=== PATIENT | female | born 1985 | race Caucasian/White ===

== ENCOUNTER → 2020-06-27 14:51 | Outpatient (CLI) | payer OTHER, MEDICAID, SELFPAY ==
--- NOTE | 2020-06-27 | DI.CT.S_ITS ---
PROCEDURE: CT SINUS SCREEN WO CON INDICATIONS: deviated septum TECHNIQUE: Noncontrast 3.0 mm axial images acquired from the frontal sinuses to the mid-sella, with coronal and sagittal reformats. For radiation dose reduction, the following was used: automated exposure control, adjustment of mA and/or kV according to patient size. COMPARISON: None. FINDINGS: Image quality: Excellent. Maxillary Sinuses: Moderate mucosal thickening is seen within the maxillary sinuses, left worse than right. There is demineralization seen of the medial barnes of the maxillary sinuses. Ethmoid Air Cells: Moderate mucosal thickening is seen within the ethmoid air cells. Bony demineralization can be seen. Sphenoid Sinuses: No bony remodeling or destruction. Mild mucosal thickening is seen. Frontal Sinuses: No bony remodeling or destruction. There is subtotal opacification seen on the left side and mild opacification seen on right. No significant bony abnormality is seen. Ostiomeatal Complexes: Ostiomeatal complexes are patent are opacified. The ostiomeatal complexes are demineralized. Miscellaneous: Visualized intra-orbital contents are normal. There is a right-sided yenifer bullosa, with mucosal thickening seen within it. There is moderate leftward nasal septal deviation. Soft tissue can be seen within the nasal cavity, which is attributed to polyps. IMPRESSION: Paranasal sinus disease is seen, which is worst within the maxillary sinuses and the ethmoid air cells. Areas of bony demineralization are seen, which are consistent with chronic sinusitis. Completely opacified and demineralized ostiomeatal complexes. Presumed nasal polyps. Dictated by: Timur Wright M.D. on 06/27/2020 at 15:18 Approved by: Timur Wright M.D. on 06/27/2020 at 15:21
== END ==
PROVIDERS: PCP Physician Assistant; Referring Provider Otolaryngology; Visit Provider Otolaryngology
DX: J34.2 Deviated nasal septum (principal); J32.4 Chronic pansinusitis
CPT/HCPCS: 70486

== ENCOUNTER → 2020-08-07 11:15 | Outpatient (CLI) | payer OTHER, MEDICAID, SELFPAY ==
--- NOTE | 2020-08-07 11:25 | DI.CT.S_ITS ---
PROCEDURE: CT SINUS SCREEN WO CON INDICATIONS: CHRONIC PANSINUSITIS TECHNIQUE: Noncontrast 3.0 mm axial images acquired from the frontal sinuses to the mid-sella, with coronal and sagittal reformats. For radiation dose reduction, the following was used: automated exposure control, adjustment of mA and/or kV according to patient size. COMPARISON: [facility], CT, CT SINUS SCREEN WO CON, 06/27/2020, 15:02. FINDINGS: Image quality: Excellent. Maxillary Sinuses: Moderate partial opacification of both maxillary sinuses, with bubbly/frothy appearance raising possibility of acute on chronic disease. This appears progressed since the prior study. Ethmoid Air Cells: Partial opacification of bilateral ethmoid air cells. Sphenoid Sinuses: There is mild mucosal thickening, which is slightly progressed since the prior study. Frontal Sinuses: Mild opacification of the inferior left frontal sinus. Overall however the frontal sinuses appear improved since 06/27/20. Ostiomeatal Complexes: Ostiomeatal complexes are opacified bilaterally. No Shun cells. Miscellaneous: Visualized intra-orbital contents are normal. No yenifer bullosa or paradoxical turbinate curvature. Leftward nasal septal deviation. IMPRESSION: Slight interval progression in sphenoid and maxillary sinus disease since the prior study dated 06/27/20. Interval development of frothy appearance in both maxillary sinuses suggests acute on chronic sinusitis. Improvement in bilateral frontal sinus disease. Dictated by: Kristopher Durán M.D. on 08/07/2020 at 12:43 Approved by: Kristopher Durná M.D. on 08/07/2020 at 12:48
== END ==
PROVIDERS: PCP Physician Assistant; Referring Provider Otolaryngology; Visit Provider Otolaryngology
DX: J32.4 Chronic pansinusitis (principal); R51.9 Headache, unspecified; J34.89 Other specified disorders of nose and nasal sinuses
CPT/HCPCS: 70486

== ENCOUNTER → 2020-11-08 11:21 | Outpatient (CLI) | payer OTHER, MEDICAID, SELFPAY ==
[2020-11-08 13:28] LABS: COVID19 -Nasal RAPID Negative (Negative)
== END ==
PROVIDERS: PCP Physician Assistant; Visit Provider Physician Assistant
DX: Z20.822 Contact with and (suspected) exposure to COVID-19 (principal)
CPT/HCPCS: 87635; C9803

== ENCOUNTER 2020-11-09 11:04 | Day surgery (SDC) | payer OTHER, MEDICAID, SELFPAY ==
[2020-11-06 14:41] VITALS: BMI 30.5
[2020-11-09] VITALS (12 sets, daily range): BP systolic 119–146; BP diastolic 55–83; PULSE 58–95; RESP 12–18; TEMP 36.2–37.1; O2SAT 94–100; BMI 30.5
--- NOTE | 2020-11-09 | PATH_ITS ---
[facility] Accession Number: [id number] . 01 Material submitted: . PART A: nose - LEFT SEPTUM PART B: nose - RIGHT SEPTUM . 01 Diagnosis: A. Left Septum, Excision: Inflamed sinonasal mucosa with scattered eosinophils. Negative for malignancy. . B. Right Septum, Excision: Inflamed sinonasal mucosa with increased eosinophils. Negative for malignancy. [facility] 11/14/2020 1017 Local . 01 Electronically signed: . Angel Luis Garvey MD, Dermatopathologist NPI- [id number] . 01 Gross description: . A. Specimen A is received in formalin labeled left septum and consists of multiple agarwal-pink fragments of soft tissue, measuring 1.0 x 0.8 x 0.2 cm in aggregate. The specimen is entirely submitted in cassette A1. B. Specimen B is received in formalin labeled right septum and consists of multiple agarwal-pink fragments of soft tissue, measuring 1.0 x 0.7 x 0.2 cm in aggregate. The specimen is entirely submitted in cassette B1. ([id number]) . /[facility] 11/10/2020 1817 Local . 01 Pathologist provided ICD-10: J33.9 . 01 CPT . 801994, [id number] Performed at: 01 [facility] [address], [place], [place] [id number] MD Paul Perez MD Phone: [phone]
[2020-11-09] MEDS: LACTATED RINGERS 1,000 ML 100 ML IV ×3 (11:37→12:59)
--- NOTE | 2020-11-09 11:41 | PM.PREOP ---
Pre-operative Note Interval Note History & Physical reviewed/Exam performed by Physician: Yes Changes to H&P: No
--- NOTE | 2020-11-09 11:42 | PM.OP.1 ---
Operative Date/Time/Diagnoses Date of procedure: 11/09/20 Time of procedure: 15:44 Pre-op diagnosis: Chronic rhinosinusitis with nasal polyposis, septal deviation, nasal airway obstruction, right yenifer bullosa, allergic rhinitis, nasal valve restriction, inferior turbinate hypertrophy Post-op diagnosis: same (Septal masses) Procedure & Clinicians Procedure: 1. Septoplasty 2. Bilateral endoscopic maxillary antrostomy 3. Bilateral endoscopic total ethmoidectomy 4. LEFT endoscopic sphenoidotomy 5:Right yenifer bullosa resection 6. Bilateral inferior turbinate reduction via intramural cautery Same procedure as scheduled: Yes Indications: 35-year-old female with the above diagnoses incompletely managed with medical therapy presents for the above procedures. Following discussion of the material risks benefits complications and alternatives, she elected to proceed. Surgeon: Ollie Zurita Click Yes if Unassisted: Yes Anesthesia Type: General and Local Operative Notes Findings: 2+ right caudal septal deviation, 2 to 3+ left septal deviation most severe superiorly. Left mid low septal flap perforation. Polypoid possible papillomatous tissue bilateral superior septum medial to the middle turbinates, biopsies taken. Polypoid mucosa left greater than right maxillary sinus, small polyps in each middle meatus and throughout the ethmoids. Left sphenoid clear, right sphenoidotomy not performed. Right yenifer bullosa included the majority of the middle turbinate and was resected, left diminutive middle turbinate was resected for access. Closure Type: primary Estimated Blood Loss (mL): 570 Procedure in detail: Following identification and confirmation of consent the patient was brought to the operating room suite and placed in the supine position. General endotracheal anesthesia was administered. I infiltrated the septum widely bilaterally with 1% lidocaine 1 100,000 epinephrine followed by temporary packing with cotton with Afrin and 4% lidocaine only anteriorly. Following sterile prep and drape, the packing was removed and I performed a right margarito-transfixion incision, elevated the right mucoperichondrial and mucoperiosteal flap. I disarticulated near the bony/cartilaginous junction and elevated the left mucoperiosteal flap. Deviated portions of the perpendicular plate of the ethmoid and vomer were resected. The residual quadrilateral cartilage was further straightened by trimming it inferiorly as well as reducing the maxillary crest. A 2 mm strip of cartilage paralleling the residual 1 cm dorsal and caudal strut was resected to further straighten the quadrilateral cartilage. The hemitransfixion incision was closed with interrupted 5 0 chromic followed by a running 4 0 plain gut mattress suture to reapproximate the septal flaps. At case completion, 20/1000th of an inch silastic splints were placed bilaterally, sutured anteriorly with a single 4 0 nylon. Each inferior turbinate had been previously infiltrated with additional local anesthetic, and a 25 gauge spinal needle was used to impale the length of the turbinate and cautery on a setting of 10 was applied on slow withdrawal to perform intramural cautery. This was performed over 2 passes for each inferior turbinate before each was outfractured. Under endoscopic guidance I infiltrated the posterior and anterior superior insertion of the left middle turbinate. 1:1000 topical epinephrine on small pledgets were placed within the middle meatus for 10 minutes. The middle turbinate was diminutive and was resected with through cutting forceps, with electrocautery of the residual posterior stump. backbiting forceps performed uncinectomy along with the microdebrider. Multiple bites with the through cutting forceps biopsied the septal papillomatous tissue medial to the middle turbinates and were sent as a specimen. Large Maxillary antrostomy was created by extending the natural os posteriorly and inferiorly. The ethmoid bulla was resected with the microdebrider. I penetrated the basal lamella inferiorly and medially to enter the posterior ethmoids and trimmed a portion of the superior turbinate. Sphenoidotomy was performed and enlarged with the J curette and the microdebrider inferiorly and medially. Posterior to anterior ethmoid dissection was performed with the J curette and forceps although the frontal recess was not approached. The ethmoid cavity was narrow on this side due to the high septal deviation and intermittent hemostasis was required with epinephrine-soaked pledgets. On the right side I performed similar injections as well as topical treatment with epinephrine. The yenifer bullosa of the middle turbinate was large and resection essentially led to complete resection of the turbinate, with cautery of the residual stump posteriorly. The uncinate process was lateralized and uncinectomy was performed with backbiting forceps. The maxillary antrostomy was performed and care was taken to ensure the natural os of the maxillary sinus was in continuity. Ethmoid bulla was resected and I penetrated the basal lamella to enter the posterior ethmoids and the natural os of the sphenoid was not readily apparent and sphenoidotomy was not performed. Posterior to anterior dissection was performed bluntly To approach but not into the frontal recess, overall with inflamed polypoid tissue and somewhat difficult visualization due to oozing, requiring frequent application of epinephrine-soaked pledgets. Hemostasis was adequate at completion and all sponge and needle counts were correct. She was extubated in the operating room and taken to recovery room in stable condition without known complication. Post-operative Condition: stable Disposition: same day surgery Plan for aftercare: Nasal saline every hour while awake, begin irrigations t.i.d. tomorrow, 2 of the 3 with budesonide. Polysporin to the nostrils at all times, Tylenol alternating with Advil for pain control, oxycodone for breakthrough pain. Elevate head of bed, no nose blowing, no straining for 2 weeks. Follow-up in 1 week for nasal splint removal. Ice to the upper lip tucked under the nose can be very helpful, possibly on the nasal dorsum as well.
--- NOTE | 2020-11-09 12:33 | SUR.OPER ---
Supine on padded OR bed, head on pillow, arms padded and tucked at sides, legs uncrossed, safety belt at thigh, tape over blanket over lower legs .
[2020-11-09] MEDS: OXYMETAZOLINE NASAL SPRAY 15 ML 2 SPRAYS NASAL (12:45)
[2020-11-09] MEDS: LIDOCAINE 1% W/EPI 20 ML INJ (12:46)
[2020-11-09] MEDS: EPINEPHrine 1 MG/ML 6 MG TOP (12:48)
[2020-11-09] MEDS: BACITRACIN OINT 0.9 GM PCKT 1 APPLIC TOP (12:49)
--- NOTE | 2020-11-09 16:04 | SUR.PHASEI ---
1551- received from or via [employer]. report from flatlock sewing machine operator and MDA. mustache dressing in place. c/d/i
[2020-11-09] MEDS: fentaNYL 100 MCG/2 ML INJ IV ×2 (16:21→16:30)
== END 2020-11-09 17:25 | disposition home or self-care (01) ==
PROVIDERS: PCP Physician Assistant; Referring Provider Otolaryngology; Visit Provider Otolaryngology
PROC: (CPT 30520; principal; 2020-11-09 12:15)
PROC: (CPT 31231; 2020-11-09 12:15)
DX: J34.2 Deviated nasal septum (principal); J33.9 Nasal polyp, unspecified; J34.89 Other specified disorders of nose and nasal sinuses; J45.909 Unspecified asthma, uncomplicated; F12.90 Cannabis use, unspecified, uncomplicated; Z87.891 Personal history of nicotine dependence; J34.3 Hypertrophy of nasal turbinates
CPT/HCPCS: 31256; 30520; 31257; 31240; 30802; 81025; J0171; J1100; J1170; J2250; J2405; J2704; J3010

== ENCOUNTER 2020-11-10 20:51 | Emergency (ER) | payer OTHER, MEDICAID, SELFPAY ==
[2020-11-10 21:08] VITALS: BP 146/78; PULSE 60; RESP 18; TEMP 36.6; O2SAT 99
[2020-11-10 23:02] VITALS: BP 135/74; PULSE 59; TEMP 37; O2SAT 100
--- NOTE | 2020-11-10 23:25 | ED.GENADULT ---
HPI - General Adult General Chief complaint: Nasal Problem Stated complaint: nose surgery splint/surgery problem Time Seen by Provider: 11/10/20 23:24 Source: patient Mode of arrival: Ambulatory History of Present Illness HPI narrative: 35-year-old woman with a history of chronic sinus problems and asthma presents 48 hours after septoplasty and sinus surgery concerned that the splint in place in the septum has been dislodged. She sneezed and had worsening pain on the left side with recurrent swelling on the left side. And the 24 hours postop she had notice that the pain and swelling were improving. She is concerned that she has done significant damage and is looking for reassurance. She describes sinus fullness and discomfort but no bleeding, cough, fevers. Related Data Home Medications Medication Instructions Recorded Confirmed acyclovir 400 mg tablet 400 mg PO BID 11/06/20 11/09/20 albuterol sulfate 90 mcg/actuation 2 puff INHALATION Q4H PRN 11/06/20 11/09/20 aerosol inhaler (ProAir HFA) budesonide-formoterol HFA 80 2 puff INHALATION BID 11/06/20 11/09/20 mcg-4.5 mcg/actuation aerosol inhaler (Symbicort) montelukast 10 mg tablet 10 mg PO DAILY 11/06/20 11/09/20 (Singulair) Previous Rx's Medication Instructions Recorded oxycodone-acetaminophen 5 mg-325 1 tab PO Q6H PRN #10 tab 11/11/20 mg tablet Allergies Allergy/AdvReac Type Severity Reaction Status Date / Time No Known Drug Allergies Allergy Verified 11/09/20 11:34 Review of Systems Review of Systems Narrative: Remainder of complete review of systems is otherwise unremarkable except for that included in the HPI. Patient History Medical History (Updated 11/11/20 @ 01:04 by Samaria Suggs MD) Allergic rhinitis Asthma Nasal fracture Nasal septal deviation Pansinusitis Surgical History (Updated 11/11/20 @ 01:04 by Samaria Suggs MD) History of sinus surgery Social History household members: significant other and children Smoking Status: Former smoker alcohol intake: current Smoking Status: Former smoker alcohol intake frequency: a few times a month Substance Use Type: marijuana Exam Narrative Exam Narrative: General: Alert appropriate in no acute distress HEENT: Swollen fullness over the bridge of her nose without significant bruising. Splints bilaterally along the septum with suture holding both in place visible. She has a bit more swelling lateral aspect of the turbinates on the left side but no active bleeding. Postsurgical splint appears to be appropriately placed. Respiratory: Able to speak in full sentences, no obvious respiratory distress Skin: No obvious rashes, warm and dry Neurologic: Grossly intact no obvious asymmetries or abnormalities Psych: appropriate insight and affect, cooperative Initial Vital Signs Initial Vital Signs: Vital Signs Temperature 98 F 11/10/20 21:08 Pulse Rate 60 11/10/20 21:08 Respiratory Rate 18 11/10/20 21:08 Blood Pressure 146/78 H 11/10/20 21:08 Pulse Oximetry 99 11/10/20 21:08 Course Orders Ordered: Discontinued Medications Ibuprofen (Ibuprofen 400 Mg Tablet) 400 mg PO NOW ONE Stop: 11/11/20 00:35 Last Admin: 11/11/20 00:48 Dose: 400 mg Documented by: RHODA Oxycodone/Acetaminophen (Oxycodone/Acetaminophen 5/325 Tablet) 1 tab PO NOW ONE Stop: 11/11/20 00:35 Last Admin: 11/11/20 00:48 Dose: 1 tab Documented by: RHODA Oxycodone/Acetaminophen (Oxycodone/Apap 5/325 Prepack) 1 bottle MISC SEEINSTR ONE Stop: 11/11/20 00:58 Last Admin: 11/11/20 01:01 Dose: 1 bottle Documented by: RHODA Vital Signs Vital signs: Vital Signs - 8 hr 11/10/20 21:08 11/10/20 23:02 Temperature 98 F 98.6 F Pulse Rate 60 59 L Respiratory Rate 18 Blood Pressure 146/78 H 135/74 Pulse Oximetry 99 100 Medical Decision Making [facility] Narrative Medical decision making narrative: 35-year-old woman who is 48 hours post septoplasty and sinus surgery presents after sneezing and concerned that she has dislodged the postsurgical packing. Physical exam suggests that it is appropriately placed. Care is briefly reviewed with Dr. Cardozo, on-call for Dr. Zurita this evening. With reassurance, ibuprofen and Percocet her pain was much better controlled and she is safe for home discharge she will follow-up with Dr. Zurita as previously scheduled. Discharge Plan Departure Patient Disposition: Home Clinical Impression: Post-operative pain Instructions: Rhinoplasty Activity Restrictions/Additional Instructions: Thank you for coming in today The septal splint is still in place on both sides. It may have shifted a little bit on the left side which is why it is hurting more but it is still doing what it needs to do. Please try sleeping as upright as you are able to tolerate to try to reduce some of the swelling. I have given you a small prescription of Percocet to help with the continued pain. The prescription was electronically transmitted to [facility] in [place] If you have worsening symptoms please feel free to return to the ER. Prescriptions: New oxycodone-acetaminophen 5-325 mg tablet 1 tab PO Q6H PRN (Reason: pain) Qty: 10 RF: 0 No Action acyclovir 400 mg Tablet 400 mg PO BID RF: 0 montelukast [Singulair] 10 mg Tablet 10 mg PO DAILY RF: 0 albuterol sulfate [ProAir HFA] 90 mcg/actuation Hfa Aerosol Inhaler 2 puff INHALATION Q4H PRN (Reason: Wheezing) RF: 0 budesonide-formoterol [Symbicort] 80-4.5 mcg/actuation Hfa Aerosol Inhaler 2 puff INHALATION BID RF: 0 Referrals: Bre Valdez [Primary Care Provider] -
[2020-11-11] MEDS: IBUPROFEN 400 MG TABLET PO (00:48)
[2020-11-11] MEDS: OXYCODONE/ACETAMINOPHEN 5/325 TABLET 1 TAB PO (00:48)
[2020-11-11] MEDS: OXYCODONE/APAP 5/325 PREPACK 1 BOTTLE MISC (01:01)
[2020-11-11 01:06] VITALS: BP 140/60; PULSE 64; RESP 18; O2SAT 99
== END 2020-11-11 01:06 | disposition home or self-care (01) ==
PROVIDERS: Emergency Provider Emergency Medicine; PCP Physician Assistant
DX: G89.18 Other acute postprocedural pain (principal)
CPT/HCPCS: 99283

== ENCOUNTER 2020-11-18 18:23 | Emergency (ER) | payer OTHER, MEDICAID, SELFPAY ==
[2020-11-18 18:28] VITALS: BP 148/97; PULSE 107; RESP 20; TEMP 36.9; O2SAT 100
--- NOTE | 2020-11-18 19:32 | ED_ITS ---
HPI - Headache General Chief Complaint: Headache Stated Complaint: head pain x9 days/post surgery Time Seen by Provider: 11/18/20 19:01 Source: patient Mode of arrival: Ambulatory Limitations: no limitations History of Present Illness HPI Narrative: Patient is a 35-year-old female. Approximately 9 days ago underwent a scheduled outpatient rhinoplasty and sinus surgery. Since that time she has followed up with the operative provider. Has had the stents removed. Since the surgery she has had a headache. She does have a history of migraines. States this feels somewhat like her prior migraines but also somewhat different. No fevers. A couple days ago she was started on antibiotics and also a steroid by the operative provider. She has been taking these as directed. She states she was told by the operative provider that if her symptoms worsen or do not improve that she should come to the emergency department for evaluation. Related Data Home Medications Medication Instructions Recorded Confirmed acyclovir 400 mg tablet 400 mg PO BID 11/06/20 11/09/20 albuterol sulfate 90 mcg/actuation 2 puff INHALATION Q4H PRN 11/06/20 11/09/20 aerosol inhaler (ProAir HFA) budesonide-formoterol HFA 80 2 puff INHALATION BID 11/06/20 11/09/20 mcg-4.5 mcg/actuation aerosol inhaler (Symbicort) montelukast 10 mg tablet 10 mg PO DAILY 11/06/20 11/09/20 (Singulair) Previous Rx's Medication Instructions Recorded oxycodone-acetaminophen 5 mg-325 1 tab PO Q6H PRN #10 tab 11/11/20 mg tablet sumatriptan succinate 3 mg/0.5 mL 3 mg SUBCUT Q1H PRN #2 ml 11/18/20 subcutaneous pen injector Allergies Allergy/AdvReac Type Severity Reaction Status Date / Time No Known Drug Allergies Allergy Verified 11/18/20 18:33 Review of Systems Constitutional Constitutional: Reports system reviewed and no additional complaints, except as documented and Denies fever(s) Eyes Eyes: Reports as per HPI and Reports system reviewed and no additional complaints, except as documented ENT Ears, Nose, Mouth, and Throat: Reports system reviewed and no additional complaints, except as documented Respiratory Respiratory: Reports as per HPI and Reports system reviewed and no additional complaints, except as documented Integumentary/Breasts Skin/Breast: Reports system reviewed and no additional complaints, except as documented Neurologic Neurologic: Reports system reviewed and no additional complaints, except as documented Hematologic/Lymphatic On Anticoagulants: No Patient History Medical History Allergic rhinitis Asthma Nasal fracture Nasal septal deviation Pansinusitis Surgical History (Updated 11/11/20 @ 01:04 by Samaria Suggs MD) History of sinus surgery Social History household members: significant other and children Smoking Status: Former smoker alcohol intake: current Smoking Status: Former smoker alcohol intake frequency: a few times a month Substance Use Type: marijuana Exam Initial Vital Signs Initial Vital Signs: Vital Signs Temperature 98.4 F 11/18/20 18:28 Pulse Rate 107 H 11/18/20 18:28 Respiratory Rate 20 11/18/20 18:28 Blood Pressure 148/97 H 11/18/20 18:28 Pulse Oximetry 100 11/18/20 18:28 Const General: cooperative, healthy appearing and comfortable [facility] Head: normal to inspection and normocephalic Eyes Other: Patient has minimal if any bruising around her eyes. Nose is straight. Resp Effort & Inspection: normal respiratory effort Cardio Rate: regular rate Skin General: no rashes or lesions noted Neuro General: patient alert, patient awake, patient oriented x3 and moves all extremities Cognition: normal cognition Speech: speech normal Extrem General: normal to inspection Psych Appearance: grossly normal and well kempt Course Orders Ordered: Discontinued Medications Diphenhydramine HCl (Diphenhydramine 50 Mg/Ml Vial) 25 mg IV NOW ONE Stop: 11/18/20 19:33 Last Admin: 11/18/20 19:38 Dose: 25 mg Documented by: KGALLAG Sodium Chloride (Normal Saline 0.9%) 1,000 mls @ 1,000 mls/hr IV BOLUS ONE Stop: 11/18/20 20:31 Last Infusion: 11/18/20 20:50 Dose: 0 mls/hr Documented by: Admin: 11/18/20 19:38 Dose: 1,000 mls/hr Documented by: [email or web address] Metoclopramide HCl (Metoclopramide 10 Mg/2 Ml Inj) 10 mg IV NOW ONE Stop: 11/18/20 19:33 Last Admin: 11/18/20 19:38 Dose: 10 mg Documented by: KATHERIN Sumatriptan Succinate (Sumatriptan 6 Mg/0.5 Ml Vial) 6 mg SUBCUT NOW ONE Stop: 11/18/20 20:42 Last Admin: 11/18/20 20:53 Dose: 6 mg Documented by: KATHERIN Vital Signs Vital signs: Vital Signs - 8 hr 11/18/20 18:28 11/18/20 20:57 Temperature 98.4 F Pulse Rate 107 H 61 Respiratory Rate 20 16 Blood Pressure 148/97 H 127/64 Pulse Oximetry 100 98 MDM - Headache Lab Data Labs: Urine Dip Bedside Urine Glucose Negative Bedside Urine Bilirubin - Negative Bedside Urine Ketone - Negative Urine Specific [place] 1.015 Bedside Urine Occult Blood - Negative Bedside Urine pH 6.0 Bedside Urine Urobilinogen - Negative Bedside Urine Nitrite - Negative Bedside Urine Leukocytes - Negative Esterase MDM Narrative Medical decision making narrative: Patient does have a history of migraines and she reported some improvement of her headache after treatment here in the ER. She states it was not completely gone. She is already on steroids. Already on antibiotics. No fevers. Low suspicion for meningitis. I did discuss the case with Dr. heart who was on-call for ENT. He recommended the course of treatment as described above. Patient was given return precautions and follow-up instructions. She expressed understanding and agreement. Discharge Plan Departure Patient Disposition: Home Clinical Impression: Headache, Post-operative pain Instructions: DI for Headache Activity Restrictions/Additional Instructions: I do recommend that you continue with the antibiotics and the steroids that was provided to you by the ear nose and throat provider. Also keep your appointment that is already scheduled next week with the neurologist. Use the sumatriptan/Imitrex as directed. Return to the emergency department for any new or worsening symptoms. Prescriptions: New sumatriptan succinate 3 mg/0.5 mL pen injector 3 mg SUBCUT Q1H PRN (Reason: migraine headache) Qty: 2 RF: 0 No Action acyclovir 400 mg Tablet 400 mg PO BID RF: 0 montelukast [Singulair] 10 mg Tablet 10 mg PO DAILY RF: 0 albuterol sulfate [ProAir HFA] 90 mcg/actuation Hfa Aerosol Inhaler 2 puff INHALATION Q4H PRN (Reason: Wheezing) RF: 0 budesonide-formoterol [Symbicort] 80-4.5 mcg/actuation Hfa Aerosol Inhaler 2 puff INHALATION BID RF: 0 oxycodone-acetaminophen 5-325 mg tablet 1 tab PO Q6H PRN (Reason: pain) Qty: 10 RF: 0 Referrals: Bre Valdez [Primary Care Provider] -
[2020-11-18] MEDS: diphenhydrAMINE 50 MG/ML VIAL 25 MG IV (19:38)
[2020-11-18] MEDS: METOCLOPRAMIDE 10 MG/2 ML INJ IV (19:38)
[2020-11-18] MEDS: SODIUM CHLORIDE 0.9% 1,000 ML 1000 ML IV (19:38)
[2020-11-18] MEDS: SUMAtriptan 6 MG/0.5 ML VIAL SUBCUT (20:53)
[2020-11-18 20:57] VITALS: BP 127/64; PULSE 61; RESP 16; O2SAT 98
== END 2020-11-18 20:58 | disposition home or self-care (01) ==
PROVIDERS: Emergency Provider Emergency Medicine; PCP Physician Assistant
DX: R51.9 Headache, unspecified (principal); G89.18 Other acute postprocedural pain; Z98.890 Other specified postprocedural states
CPT/HCPCS: 36415; 81003; 96361; 96372; 96374; 96375; 99284; J1200; J2765; J3030

== ENCOUNTER 2021-10-26 10:45 | Emergency (ER) | payer OTHER, MEDICAID, SELFPAY ==
[2021-10-26 10:51] VITALS: BP 151/80; PULSE 94; RESP 18; TEMP 36.7; O2SAT 98; BMI 28.1
[2021-10-26 11:15] LABS: Add Manual Diff / Slide Review NO; Basophils Absolute Auto 100 /uL (0-100); Basophils Percent Auto 1.4 % (0-2); Eosinophils Absolute Auto 200 /uL (0-450); Eosinophils Percent Auto 3.8 % (2-4); Hematocrit 39.4 % (36-46); Hemoglobin 13.4 g/dL (12.0-16.0); Lymphocytes Absolute Auto 1500 /uL (1100-4500); Lymphocytes Percent Auto 29.9 % (25-40); Mean Corpuscular HGB Conc 33.9 % (30-36); Mean Corpuscular Hemoglobin 29.1 PG (26-34); Mean Corpuscular Volume 85.9 fL (80-100); Monocytes Absolute Auto 300 /uL (0-900); Monocytes Percent Auto 7.1 % (3-14); Neutrophils Absolute Auto 2800 /uL (1500-7000); Neutrophils Percent Auto 57.8 % (50-75); Platelet Count 198 X10^3/uL (150-400); Red Blood Cell Count 4.59 X10^6/uL (4.0-5.2); Red Cell Distribution Width 12.6 % (11.6-14.8); White Blood Cell Count 4.9 X10^3/uL (4.5-11.0)
[2021-10-26 11:23] LABS: Alanine Aminotransferase 21 IU/L (<35); Albumin Globulin Ratio 1.4 (1.0-2.8); Alkaline Phosphatase 42 U/L (38-126); Aspartate Aminotransferase 26 IU/L (14-36); Bilirubin Total 0.7 mg/dL (0.2-1.3); Blood Urea Nitrogen 13 mg/dL (7-17); Calcium 8.9 mg/dL (8.4-10.2); Carbon Dioxide 24 mmol/L (22-32); Chloride 106 mmol/L (98-107); Estimated Glomerular Filt Rate > 60 mL/min (>60); Globulin 2.8 g/dL (1.7-4.1); Glucose 90 mg/dL (70-100); HEMOLYSIS < 15 (0-50); Lipase 83 U/L (23-300); Potassium 3.8 mmol/L (3.4-5.1); Sodium 138 mmol/L (137-145); Total Protein 6.8 g/dL (6.3-8.2)
--- NOTE | 2021-10-26 13:32 | DI.CT.S_ITS ---
PROCEDURE: CT KIDNEY URETER BLADDER (KUB) INDICATIONS: Left-sided pain TECHNIQUE: Axial sections were acquired from the lung bases to the pubic symphysis. Coronal and sagittal reformats were performed. For radiation dose reduction, the following was used: automated exposure control, adjustment of mA and/or kV according to patient size. COMPARISON: None. FINDINGS: Image quality: Excellent. Lung bases: Lung bases are clear. Heart: No significant findings. URINARY: Right Kidney: No stones or hydronephrosis. No perinephric stranding. Right Ureter: No hydroureter. No ureteral stones or periureteral stranding. Left Kidney: No stones or hydronephrosis. No perinephric stranding. Left Ureter: No hydroureter. No ureteral stones or periureteral stranding. Bladder: There is minimal circumferential urinary bladder wall thickening which may be related to incomplete distention; however, cystitis may have a similiar appearance. No stones. ABDOMEN: Liver: Unremarkable. Gallbladder: Unremarkable. Biliary ducts: Unremarkable. Pancreas: Unremarkable. Spleen: Unremarkable. Adrenal Glands: Unremarkable. Stomach and Bowel: Stomach, small bowel loops, and colon are unremarkable. Peritoneum: No abnormal intraperitoneal fluid. No free air. Ventral Wall: No hernia. Abdominal Nodes: No enlarged retroperitoneal or mesenteric lymph nodes. Vessels: Aorta and inferior vena cava are normal in size. PELVIS: Pelvic Organs: Unremarkable. Pelvic Nodes: Unremarkable. Miscellaneous: No inguinal hernias are seen. Bones: Unremarkable. IMPRESSION: Minimal circumferential urinary bladder wall thickening which may be related to incomplete distension. However, cystitis may have a similar appearance. Recommend clinical and laboratory correlation. Otherwise, CT abdomen and pelvis without acute abnormalities to explain patient's left lower quadrant abdominal pain. Dictated by: Sergei Frances M.D. on 10/26/2021 at 13:53 Approved by: Sergei Frances M.D. on 10/26/2021 at 13:57
--- NOTE | 2021-10-26 13:33 | ED_ITS ---
HPI - Abdominal Pain General Chief Complaint: Abdominal Pain Stated Complaint: Lower lt abd pain Time Seen by Provider: 10/26/21 13:28 Source: patient Mode of arrival: Ambulatory History of Present Illness HPI narrative: Patient drove here. Has history hysterectomy and appendectomy. In the past 2 years did have history of hemorrhagic right ovarian cyst. States does not feel like this. Patient states 4 days ago had slightly left lower back and left pelvic pain. Has urinary urgency but no dysuria. Has nausea but no vomiting. No fever chills. Appetite has early satiety. No diarrhea. No prior history of kidney stones. Related Data Home Medications Medication Instructions Recorded Confirmed acyclovir 400 mg tablet 400 mg PO BID 11/06/20 11/09/20 albuterol sulfate 90 mcg/actuation 2 puff inhalation Q4H PRN Wheezing 11/06/20 11/09/20 aerosol inhaler (ProAir HFA) budesonide-formoterol HFA 80 2 puff inhalation BID 11/06/20 11/09/20 mcg-4.5 mcg/actuation aerosol inhaler (Symbicort) montelukast 10 mg tablet 10 mg PO DAILY 11/06/20 11/09/20 (Singulair) Previous Rx's Medication Instructions Recorded oxycodone-acetaminophen 5 mg-325 1 tab PO Q6H PRN pain #10 tabs 11/11/20 mg tablet sumatriptan succinate 3 mg/0.5 mL 3 mg (0.5 mL) SUBCUT Q1H PRN 11/18/20 subcutaneous pen injector migraine headache #2 mL ondansetron 4 mg disintegrating 4 mg PO Q8H PRN nausea and 10/26/21 tablet vomiting #10 tabs phenazopyridine 100 mg tablet 100 mg PO TID PRN pain 6 doses #6 10/26/21 (Pyridium) tabs sulfamethoxazole 800 1 tab PO BID #10 tabs 10/26/21 mg-trimethoprim 160 mg tablet Allergies Allergy/AdvReac Type Severity Reaction Status Date / Time No Known Drug Allergies Allergy Verified 10/26/21 10:56 Review of Systems Review of Systems Narrative: GENERAL: Denies chills, fatigue, malaise, fever, sweats. HEENT: Denies sinus pain, ear pain, sore throat RESPIRATORY: Denies dyspnea, cough CARDIOVASCULAR: Denies chest pain, palpitations GASTROINTESTINAL: Positive for abdominal pain and nausea nausea, negative for vomiting, : Denies dysuria, frequency, hematuria, positive for urgency MUSCULOSKELETAL: denies muscle or bony pain SKIN: Denies rash, skin lesions NEUROLOGIC: Denies weakness, numbness ROS Unobtainable: All systems reviewed & are unremarkable except as noted in HPI and below Patient History Medical History Allergic rhinitis Asthma Nasal fracture Nasal septal deviation Pansinusitis Surgical History History of sinus surgery Social History household members: significant other and children Smoking Status: Former smoker alcohol intake: current Smoking Status: Former smoker alcohol intake frequency: a few times a month Substance Use Type: marijuana Exam Narrative Exam Narrative: GENERAL: in no distress, not toxic not dyspneic HEAD: Normocephalic. EYES: Pupils equal round No scleral icterus. ENT: Mucous membranes moist. NECK: Trachea midline. CARDIOVASCULAR: Regular rate and rhythm without murmurs RESPIRATORY: Clear to auscultation. Breath sounds equal bilaterally. No wheezes, rales, or rhonchi. GASTROINTESTINAL: Abdomen soft, no CVA tenderness, mild left lower quadrant tenderness, no peritoneal signs, bowel sounds are present EXTREMITIES: No gross deformities. BACK: No flank tenderness. NEURO: AOx4. SKIN: Warm and dry PSYCH: Not anxious, is cooperative Initial Vital Signs Initial Vital Signs: Vital Signs Temperature 98.0 F 10/26/21 10:51 Pulse Rate 94 H 10/26/21 10:51 Respiratory Rate 18 10/26/21 10:51 Blood Pressure 151/80 H 10/26/21 10:51 Pulse Oximetry 98 10/26/21 10:51 Oxygen Delivery Method 10/26/21 10:51 Course Course Course Narrative: No new issues during course of stay Orders Ordered: ED Orders 10/26/21 11:05 Complete Blood Count AUTO DIFF Stat Comprehensive Metabolic Panel Stat Lipase Stat 10/26/21 13:32 CT kidney ureter bladder (KUB) Stat Discontinued Medications Sodium Chloride (Normal Saline 0.9%) 1,000 mls @ 1,000 mls/hr IV BOLUS ONE Stop: 10/26/21 14:31 Last Infusion: 10/26/21 15:11 Dose: 0 mls/hr Documented By: Admin: 10/26/21 13:55 Dose: 1,000 mls/hr Documented By: DONG Ketorolac Tromethamine (Ketorolac 30 Mg/Ml Vial) 15 mg IV NOW ONE Stop: 10/26/21 13:33 Last Admin: 10/26/21 13:55 Dose: 15 mg Documented By: DONG Ondansetron HCl (Ondansetron 4 Mg/2 Ml Inj) 4 mg IV NOW ONE Stop: 10/26/21 13:33 Last Admin: 10/26/21 13:55 Dose: 4 mg Documented By: DONG Phenazopyridine HCl (Phenazopyridine 100 Mg Tablet) 100 mg PO NOW ONE Stop: 10/26/21 15:24 Last Admin: 10/26/21 15:29 Dose: 100 mg Documented By: HOLDEN Trimethoprim/Sulfamethoxazole (Trimeth/Sulfa 160/800 (Ds) Tablet) 1 tab PO NOW ONE Stop: 10/26/21 15:24 Last Admin: 10/26/21 15:29 Dose: 1 tab Documented By: HOLDEN Reevaluation(s) Reevaluation #1: Patient is pain-free after Toradol. Feels much better. Reviewed results with her. Acute cystitis. Antibiotics started here. Pyridium as well. Prescription provided as well. Bactrim started. Return precautions reviewed with her. She desires discharge home. Time: 15:28 Vital Signs Vital signs: Vital Signs - 8 hr 10/26/21 10:51 Temperature 98.0 F Pulse Rate 94 H Respiratory Rate 18 Blood Pressure 151/80 H Pulse Oximetry 98 Oxygen Delivery Method Room Air MDM - Abdominal Pain Differential Diagnosis Differential diagnosis: Likely abdominal pain, calculus of kidney, constipation, diverticulitis, small bowel obstruction and other (Acute UTI) Lab Data Result diagrams: 10/26/21 11:05 10/26/21 11:05 Labs: Lab Results 10/26/21 10/26/21 Range/Units 11:05 11:05 WBC 4.9 (4.5-11.0) X10^3/uL RBC 4.59 (4.0-5.2) X10^6/uL Hgb 13.4 (12.0-16.0) g/dL Hct 39.4 (36-46) % MCV 85.9 (80-100) fL MCH 29.1 (26-34) PG MCHC 33.9 (30-36) % RDW 12.6 (11.6-14.8) % Plt Count 198 (150-400) X10^3/uL Neut % (Auto) 57.8 (50-75) % Lymph % (Auto) 29.9 (25-40) % [place] % (Auto) 7.1 (3-14) % Eos % (Auto) 3.8 (2-4) % Baso % (Auto) 1.4 (0-2) % Neut # (Auto) 2800 (8123-7212) /uL Lymph # (Auto) 1500 (9463-7477) /uL [place] # (Auto) 300 (0-900) /uL Eos # (Auto) 200 (0-450) /uL Baso # (Auto) 100 (0-100) /uL Sodium 138 (137-145) mmol/L Potassium 3.8 (3.4-5.1) mmol/L Chloride 106 (98-107) mmol/L Carbon Dioxide 24 (22-32) mmol/L BUN 13 (7-17) mg/dL Creatinine 0.65 (0.52-1.04) mg/dL Estimated GFR > 60 (>60) mL/min BUN/Creatinine Ratio 20.0 (6-22) Glucose 90 (70-100) mg/dL Calcium 8.9 (8.4-10.2) mg/dL Total Bilirubin 0.7 (0.2-1.3) mg/dL AST 26 (14-36) IU/L ALT 21 (<35) IU/L Alkaline Phosphatase 42 (38-126) U/L Total Protein 6.8 (6.3-8.2) g/dL Albumin 4.0 (3.5-5.0) g/dL Globulin 2.8 (1.7-4.1) g/dL Albumin/Globulin Ratio 1.4 (1.0-2.8) Lipase 83 (23-300) U/L Point of care testing: Urine Dip Bedside Urine Glucose Negative Bedside Urine Bilirubin - Negative Bedside Urine Ketone - Negative Urine Specific [place] 1.015 Bedside Urine Occult Blood - Negative Bedside Urine pH 6.5 Bedside Urine Protein - Negative Bedside Urine Urobilinogen +/- 1mg Bedside Urine Nitrite - Negative Bedside Urine Leukocytes - Negative Esterase Imaging Data CT scan - abdomen/pelvis: Radiologist's Impression: [address] [address] [address] Scan Report Signed Patient: Kacie Lopez MR#: [id number] : 1985 Acct:[id number] Age/Sex: 36 / F Date of Service: 10/26/21 Loc: ED Accession Number: [id number] ?? Procedure: CT kidney ureter bladder (KUB) Ordering Provider: Delio Power MD PROCEDURE:? CT KIDNEY URETER BLADDER (KUB) ? INDICATIONS:? Left-sided pain ? TECHNIQUE:? Axial sections were acquired from the lung bases to the pubic symphysis.? Coronal and sagittal reformats were performed.? For radiation dose reduction, the following was used: ?automated exposure control, adjustment of mA and/or kV according to patient size.? ? COMPARISON:? None. ? FINDINGS:? Image quality:? Excellent.? ? Lung bases:? Lung bases are clear. Heart:? No significant findings. ? URINARY: Right Kidney:? No stones or hydronephrosis. No perinephric stranding. Right Ureter:? No hydroureter. No ureteral stones or periureteral stranding. ? Left Kidney:? No stones or hydronephrosis. No perinephric stranding.? Left Ureter:? No hydroureter. No ureteral stones or periureteral stranding. ? Bladder:? There is minimal circumferential urinary bladder wall thickening which may be related to incomplete distention; however, cystitis may have a similiar appearance.? No stones. ? ? ? ABDOMEN: Liver:? Unremarkable.? ? Gallbladder:? Unremarkable.? ? Biliary ducts:? Unremarkable.? ? Pancreas:? Unremarkable.? ? Spleen:? Unremarkable.? ? Adrenal Glands:? Unremarkable.? ? ? Stomach and Bowel:? Stomach, small bowel loops, and colon are unremarkable.? Peritoneum:? No abnormal intraperitoneal fluid.? No free air.? ? Ventral Wall: ? No hernia.? Abdominal Nodes:? No enlarged retroperitoneal or mesenteric lymph nodes.? Vessels:? Aorta and inferior vena cava are normal in size.? ? PELVIS: Pelvic Organs:? Unremarkable.? ? Pelvic Nodes: Unremarkable. Miscellaneous: No inguinal hernias are seen. ? ? ? Bones:? Unremarkable. ? IMPRESSION:? ? Minimal circumferential urinary bladder wall thickening which may be related to incomplete distension.? However, cystitis may have a similar appearance.? Recommend clinical and laboratory correlation.? Otherwise,? CT abdomen and pelvis without acute abnormalities to explain patient's left lower quadrant abdominal pain. ? ? ? Dictated by: Sergei Frances M.D. on 10/26/2021 at 13:53 ? ? Approved by: Sergei Frances M.D. on 10/26/2021 at 13:57 ? MDM Narrative Medical decision making narrative: Appropriate for discharge home. Exam laboratory studies and imaging are reassuring. Likely cystitis given symptoms and location of pain and CT correlation. Not toxic at discharge. Return precautions reviewed with her. She desires discharge home. Discharge Plan Departure Patient Disposition: Home Clinical Impression: Acute cystitis Instructions: DI for Acute Cystitis Activity Restrictions/Additional Instructions: May continue ibuprofen for pain. Keep well hydrated. Prescription antibiotic and Pyridium has been sent to your pharmacy. The antibiotic is Bactrim. Please see family doctor in a week for re-evaluation. Call provided primary care referral phone number to establish family doctor. Call [phone]. Return if worse if any questions or concerns Prescriptions: New sulfamethoxazole-trimethoprim 800-160 mg tablet 1 tab PO BID Qty: 10 0RF phenazopyridine [Pyridium] 100 mg tablet 100 mg PO TID PRN (Reason: pain) Qty: 6 0RF ondansetron 4 mg tablet,disintegrating 4 mg PO Q8H PRN (Reason: nausea and vomiting) Qty: 10 0RF No Action acyclovir 400 mg Tablet 400 mg PO BID montelukast [Singulair] 10 mg Tablet 10 mg PO DAILY albuterol sulfate [ProAir HFA] 90 mcg/actuation Hfa Aerosol Inhaler 2 puff INHALATION Q4H PRN (Reason: Wheezing) budesonide-formoterol [Symbicort] 80-4.5 mcg/actuation Hfa Aerosol Inhaler 2 puff INHALATION BID oxycodone-acetaminophen 5-325 mg tablet 1 tab PO Q6H PRN (Reason: pain) Qty: 10 0RF sumatriptan succinate 3 mg/0.5 mL pen injector 3 mg SUBCUT Q1H PRN (Reason: migraine headache) Qty: 2 0RF Rx Instructions: do not exceed 4 doses per 24 hrs Referrals: Caitlin Lewis ARNP [Primary Care Provider] - Visit Report Forms: Patient Portal/API
[2021-10-26] MEDS: SODIUM CHLORIDE 0.9% 1,000 ML 1000 ML IV (13:55)
[2021-10-26] MEDS: KETOROLAC 30 MG/ML VIAL 15 MG IV (13:55)
[2021-10-26] MEDS: ONDANSETRON 4 MG/2 ML INJ IV (13:55)
[2021-10-26] MEDS: TRIMETH/SULFA 160/800 (DS) TABLET 1 TAB PO (15:29)
[2021-10-26] MEDS: PHENAZOPYRIDINE 100 MG TABLET PO (15:29)
== END 2021-10-26 15:34 | disposition home or self-care (01) ==
PROVIDERS: Emergency Provider Emergency Medicine; PCP Nurse Practitioner Family
DX: N30.00 Acute cystitis without hematuria (principal)
CPT/HCPCS: 36415; 74176; 80053; 81003; 83690; 85025; 96361; 96374; 96375; 99284; J1885; J2405

== ENCOUNTER → 2023-12-10 15:20 | Outpatient (CLI) | payer OTHER, MEDICAID, SELFPAY ==
[2023-12-10 16:08] LABS: Add Manual Diff / Slide Review NO; Basophils Absolute Auto 100 /uL (0-100); Basophils Percent Auto 1.3 % (0-2); Eosinophils Absolute Auto 400 /uL (0-450); Eosinophils Percent Auto 4.8 % (2-4); Hematocrit 43.4 % (36-46); Hemoglobin 14.6 g/dL (12.0-16.0); Lymphocytes Absolute Auto 2200 /uL (1100-4500); Mean Corpuscular HGB Conc 33.7 % (30-36); Mean Corpuscular Volume 86.1 fL (80-100); Monocytes Absolute Auto 500 /uL (0-900); Monocytes Percent Auto 6.7 % (3-14); Neutrophils Absolute Auto 4700 /uL (1500-7000); Neutrophils Percent Auto 59.2 % (50-75); Platelet Count 251 X10^3/uL (150-400); Red Blood Cell Count 5.03 X10^6/uL (4.0-5.2); Red Cell Distribution Width 12.8 % (11.6-14.8)
[2023-12-15 00:36] LABS: Alder IgE <0.10 kU/L (Class 0); Alternaria alternata IgE <0.10 kU/L (Class 0); Aspergillus fumigatus IgE <0.10 kU/L (Class 0); Box Elder IgE <0.10 kU/L (Class 0); Cat Dander IgE <0.10 kU/L (Class 0); Cladosporium herbarum IgE <0.10 kU/L (Class 0); Cockroach IgE <0.10 kU/L (Class 0); Cottonwood IgE <0.10 kU/L (Class 0); D farinae IgE <0.10 kU/L (Class 0); D pteronyssinus IgE 0.29 kU/L (Class 0/I); Dog Dander IgE <0.10 kU/L (Class 0); Elm Tree IgE <0.10 kU/L (Class 0); Immunoglobulin E 401 IU/mL (6-495); Mountain Cedar IgE <0.10 kU/L (Class 0); Mouse Urine Proteins IgE <0.10 kU/L (Class 0); Nettle IgE <0.10 kU/L (Class 0); Oak Tree IgE <0.10 kU/L (Class 0); Penicillium chrysogen IgE <0.10 kU/L (Class 0); Pigweed, Common IgE <0.10 kU/L (Class 0); Ragweed, Short <0.10 kU/L (Class 0); Sheep Sorrel IgE <0.10 kU/L (Class 0); Silver Birch IgE <0.10 kU/L (Class 0); Timothy Grass IgE 0.67 kU/L (Class II); Walnut Allery IgE < 0.10 kU/L (Class 0); White ash IgE <0.10 kU/L (Class 0)
== END ==
PROVIDERS: PCP Nurse Practitioner Family; Referring Provider Student in an Organized Health Care Education/Training Program; Visit Provider Student in an Organized Health Care Education/Training Program
DX: J45.50 Severe persistent asthma, uncomplicated (principal); Z87.891 Personal history of nicotine dependence; J30.9 Allergic rhinitis, unspecified; J33.9 Nasal polyp, unspecified
CPT/HCPCS: 36415; 82785; 85025; 86003